=== PATIENT | female | born 1990 | race Caucasian/White ===

== ENCOUNTER 2019-09-21 12:46 | Emergency (ER) | payer OTHER ==
[~2019-09-21] VITALS: Ht 160 cm; Wt 77.1 kg
[2019-09-21] MEDS ORDERED: SERTRALINE HCL100 MG PO (13:03)
[2019-09-21] MEDS ORDERED: KEFLEX500 M1 PO (15:30)
[2019-09-21] MEDS ORDERED: BUTALB-APAP-CA1 EACH PO (15:30)
[2019-09-21] MEDS ORDERED: MEDROLDOSEPACK PO (15:30)
[2019-09-21 15:42] VITALS: BP 130/70
== END 2019-09-21 15:42 | disposition home or self-care (01) ==
LOC: M.ERS 12:46
DX: J01.90 Acute sinusitis, unspecified (principal); Z20.828 Contact with and (suspected) exposure to other viral communicable diseases; Z90.49 Acquired absence of other specified parts of digestive tract; Z98.890 Other specified postprocedural states